=== PATIENT | male | born 1965 | race Caucasian/White ===

== ENCOUNTER 2019-04-25 07:21 | Emergency (ER) | payer BC, SELFPAY ==
[2019-04-25 07:22] VITALS: BP 128/72; PULSE 78; RESP 16; TEMP 36.8; O2SAT 98; BMI 22.0
--- NOTE | 2019-04-25 07:34 | RAD_ITS ---
EXAM DESCRIPTION: PORTABLE AP CHEST CLINICAL HISTORY: 54 years Male, Cough, body aches, general illness x 5 days Cough, body aches, general illness x 5 days COMPARISON: None FINDINGS: The thorax is intact. The heart and mediastinum appear to be within normal limits. The lungs appear to be well areated without evidence of pneumonic consolidation or pleural effusion. RAD/Chest PA and Lateral IMPRESSION: Normal portable chest. Electronically Signed: Dony Christie, at 8:00 EST Tel , Service support ,
--- NOTE | 2019-04-25 08:06 | ED.DCSUM_ITS ---
History of Present Illness Chief Complaint: Sore Throat Informant: Patient Known exposure: Yes - work Onset: Days Context: Gradual Onset Timing: Continuous Associated Symptoms: Cough, Sore throat, - - Nasal congestion Chest Pain: None Narrative: Patient is a 54-year-old male with no significant past medical history presenting with feeling sick. Patient states for the past 4 days he has been feeling unwell. He has had a cough that is dry and hacking. He denies any associated fever, chest pain or shortness of breath. He is also had associated sore throat and congestion. States he was feeling worse over the last 2 days which is why he came to the emergency room. He has associated muscle aches. He is taken some Tylenol at home intermittently for his symptoms without significant relief. He denies any nausea, vomiting, diarrhea or abdominal pain. He denies any urinary symptoms. He notes he stayed home from work yesterday because he was feeling unwell. He denies any other complaints at this time. Past Medical History - Allergies and Home Meds Allergies/Adverse Reactions: Allergies No Known Allergies Allergy (Verified 04/25/19 07:21) Primary Care Physician: NOT,DEFINED [NON-STAFF] - Past Medical History: None Surgical History: no surgical history Smoking Status: Former smoker Alcohol: Rare Drugs: None Review of Systems General: Reports: Malaise. Denies: Chills, Fever, Sweats ENT: Reports: Sore throat, - - Nasal congestion. Denies: Bilateral ear pain, Rhinorrhea Cardiovascular: Denies: Chest pain, Palpitations Respiratory: Reports: Cough. Denies: Dyspnea, Sputum, Dyspnea on exertion Gastrointestinal: Denies: Abdominal pain, Nausea, Vomiting, Diarrhea, Melena, Hematochezia Genitourinary: Denies: Dysuria, Hematuria, Frequency Skin: Denies: Rash Neurological: Denies: Headache, Weakness, Numbness Physical Exam Vital Signs/Narrative: Vital Signs Temp Pulse Resp BP Pulse Ox 04/25/19 07:22 98.2 F 78 16 128/72 H 98 Inital Vital Signs reviewed: Yes General: Well nourished, Well developed Head: Normocephalic, Atraumatic Eyes: Perrl, EOMI ENT: Moist mucous membranes, No rhinorrhea, TM's clear, - - Mild erythema/injection of the pharynx, no tonsillar swelling or exudate appreciated. Negative for: Rhinorrhea, Purulent Discharge, Sinus tenderness Neck: Supple, Nontender Cardiovascular: Regular rate, Regular rhythm, No murmurs Respiratory: No distress, No Stridor, Chest nontender, - - Course breath sounds however no wheezing or rhonchi appreciated Abdomen: Soft, Nontender, Nondistended, Normal bowel sounds Back: Nontender, Normal Inspection Extremities: Nontender, No edema Skin: Normal color, No rash Neurological: Alert, Oriented x3, Cranial nerves II-XII grossly intact, Normal Strength, Normal Sensation Psychological: Normal affect Diagnostic/Tx/Re-eval Chest X-Ray - ED: 2 View, Read by ED Physician, Read by Radiologist, No Acute Disease - Medical Decision Making Patient is evaluated for 3 to 4days sore throat, cough and nasal congestion. He has associated body aches. His vital signs are normal and he is afebrile. Patient does have coarse breath sounds no chest x-ray is obtained. This is negative. Patient is counseled that this could be influenza. He is offered a flu swab but counseled that he is not within the window for Tamiflu it would not change his ultimate management. Patient declines a flu swab. I think this is very reasonable. He will be treated as if he does have the flu or other viral illness. He is counseled on symptomatic treatment occluding Mucinex D and NSAIDs. He is counseled on increasing his fluid intake. Patient is counseled o n signs and symptoms requiring return to the emergency room. Patient verbalizes agreement and understand this plan. Patient discharged home in stable and improved condition. ED Disposition - Plan for ED Patient: Disposition: Home or Assisted Living Diagnosis: Flu-like symptoms Instructions: VIRAL SYNDROME (Adult) Prescriptions: Ibuprofen 600 mg PO 4X/DAY PRN #20 tab PRN Reason: Pain Or Fever Prescription Printed Benzonatate [Tessalon Perle] 100 mg PO 4X/DAY PRN PRN #15 cap PRN Reason: Cough Prescription Printed Referrals: Kimmie Turner MD [STAFF PHYSICIAN] - Additional Instructions: More than likely you have influenza or another flulike illness. This is usually viral. Do not have any signs of pneumonia on your chest x-ray. The treatment is symptomatic including ibuprofen and decongestants. You can use a medication such as [id number] Mucinex D for nasal congestion and cough. Follow-up with a primary care doctor which you have been referred to. Return emergency room with any worsening symptoms or if you start to feel better and then develop a fever.
== END 2019-04-25 08:21 | disposition home or self-care (01) ==
PROVIDERS: Emergency Provider Emergency Medicine
DX: B34.9 Viral infection, unspecified (principal); Z87.891 Personal history of nicotine dependence
CPT/HCPCS: 71046; 99283